=== PATIENT | female | born 1945 | race Caucasian/White ===

== ENCOUNTER → 2018-11-12 | Outpatient (CLI) | payer MEDICARE ==
[~2018-11-12] MED LIST: ATOR10TA PO; ESCI10TA10 PO
[2018-11-12 10:46] LABS: BASOPHILS # (AUTO) 0.02 x10^3/uL (0-0.1); BASOPHILS % (AUTO) 1 % (0-1); EOSINOPHILS # (AUTO) 0.04 x10^3/uL (0-0.4); EOSINOPHILS % (AUTO) 1 % (1-7); LYMPHOCYTES # (AUTO) 0.88 x10^3/uL (1-3.4); LYMPHOCYTES % (AUTO) 20 % (22-44); MD NO; MEAN CORPUSCULAR HEMOGLOBIN 31.4 pg (27.0-34.8); MEAN CORPUSCULAR HGB CONC 32.9 g/dL (32.4-35.8); MEAN CORPUSCULAR VOLUME 95.5 fL (80-100); MEAN PLATELET VOLUME 7.9 fL (7.4-10.4); MONOCYTES # (AUTO) 0.27 x10^3/uL (0.2-0.8); MONOCYTES % (AUTO) 6 % (2-9); NEUTROPHILS # (AUTO) 3.09 x10^3/uL (1.8-6.8); NEUTROPHILS % (AUTO) 72 % (42-75); PLATELET COUNT 249 x10^3/uL (130-400); RED CELL DISTRIBUTION WIDTH 13.1 % (9.6-15.2)
[2018-11-12 10:56] LABS: ANION GAP 6 mmol/L (5-15); CALCIUM 9.2 mg/dL (8.5-10.1); CHLORIDE 108 mmol/L (98-107); CREATININE 0.74 mg/dL (0.55-1.02)
== END | disposition home or self-care (01) ==
LOC: STAR 10:04
PROVIDERS: ATTEND Orthopaedic Surgery
DX: M17.0 Bilateral primary osteoarthritis of knee (principal); M18.12 Unilateral primary osteoarthritis of first carpometacarpal joint, left hand; M65.342 Trigger finger, left ring finger
CPT/HCPCS: 36415; 80048; 85025; 87081; 93005

== ENCOUNTER 2018-11-23 05:47 | Day surgery (SDC) | payer MEDICARE ==
[~2018-11-23] VITALS: Ht 165.1 cm; Wt 49.9 kg
[2018-11-23] MEDS ORDERED: LACTATED RINGERS 1,000 ML IV SCH (06:06)
[2018-11-23] MEDS ORDERED: KETOROLAC 60 MG/2 ML ONE (06:07)
[2018-11-23] MEDS ORDERED: ROPIvacaine/PF 0.2%, 20 ML ONE (06:07)
[2018-11-23] MEDS ORDERED: TRANEXAMIC ACID 100 MG/ML, 10ML ONE (06:07)
[2018-11-23] MEDS ORDERED: EPINEPHRINE 1 MG/ML, 1ML ONE (06:08)
[2018-11-23] MEDS ORDERED: SODIUM CHLORIDE 0.9% 50 ML ONE (06:08)
[2018-11-23] MEDS ORDERED: VANCOMYCIN 1,000 MG ONE (06:08)
[2018-11-23] MEDS ORDERED: MIDAZOLAM 1 MG/ML, 2ML ONE (06:54)
[2018-11-23] MEDS ORDERED: FENTANYL PF 250 MCG/5ML ONE (06:55)
[2018-11-23] MEDS ORDERED: ACETAMINOPHEN 500 MG TABLET ONE ×2 (07:06→10:07)
[2018-11-23] MEDS ORDERED: SCOPOLAMINE PATCH, 1.5MG PATCH.TD72 TD ONE ×2 (07:06→10:07)
[2018-11-23] MEDS ORDERED: GABAPENTIN 300 MG CAPSULE ONE ×2 (07:06→10:07)
[2018-11-23] MEDS ORDERED: hydrALAzine 20 MG/ML, 1ML IV PRN (08:00)
[2018-11-23] MEDS ORDERED: FENTANYL PF 100 MCG/2ML IV PRN (08:00)
[2018-11-23] MEDS ORDERED: DIAZEPAM 5 MG/ML, 2ML IVPush PRN (08:00)
[2018-11-23] MEDS ORDERED: HYDROmorphone 2 MG/ML, 1ML IVPush PRN (08:00)
[2018-11-23] MEDS ORDERED: PROMETHAZINE 25 MG/ML, 1ML IV PRN (08:00)
[2018-11-23] MEDS ORDERED: MEPERIDINE/PF 25MG/0.5ML IVPush PRN (08:00)
[2018-11-23] MEDS ORDERED: LABETALOL 5MG/ML, 20ML IV PRN (08:00)
[2018-11-23] MEDS ORDERED: OXYcodone 5 MG/5 ML ORAL.SOL UDC PO PRN (08:00)
[2018-11-23] MEDS ORDERED: ALBUTEROL SULFATE 2.5 MG/3 ML NPPB PRN (08:00)
[2018-11-23] MEDS ORDERED: D5%-0.45% NACL 1,000 ML IV SCH (08:46)
[2018-11-23] MEDS ORDERED: DIPHENHYDRAMINE 25 MG CAPSULE PO PRN (09:00)
[2018-11-23] MEDS ORDERED: ALUMINUM/MAG/SIMETHICONE 30 ML UDC PO PRN (09:00)
[2018-11-23] MEDS ORDERED: SCOPOLAMINE PATCH, 1.5MG PATCH.TD72 TD SCH (09:00)
[2018-11-23] MEDS ORDERED: ACETAMINOPHEN 325 MG TABLET PO SCH (09:00)
[2018-11-23] MEDS ORDERED: PROMETHAZINE 12.5 MG SUPP PR PRN (09:00)
[2018-11-23] MEDS ORDERED: PSYLLIUM PACKET PO PRN (09:00)
[2018-11-23] MEDS ORDERED: HYDROmorphone 1 MG/ML, 1ML INJ IVPush PRN (09:00)
[2018-11-23] MEDS ORDERED: SENNA/DOCUSATE TABLET PO PRN (09:00)
[2018-11-23] MEDS ORDERED: MULTIVITAMINS/MINERALS TABLET PO SCH (09:00)
[2018-11-23] MEDS ORDERED: ONDANSETRON 4 MG TABLET PO PRN (09:00)
[2018-11-23] MEDS ORDERED: ZOLPIDEM 5MG TABLET PO PRN (09:00)
[2018-11-23] MEDS ORDERED: DOCUSATE 100 MG CAPSULE PO SCH (09:00)
[2018-11-23] MEDS ORDERED: MAGNESIUM HYDROXIDE 8%, 30ML UDC PO PRN (09:00)
[2018-11-23] MEDS ORDERED: DIAZEPAM 5 MG TABLET PO PRN (09:00)
[2018-11-23] MEDS ORDERED: FERROUS SULFATE 325 MG TABLET PO SCH (09:00)
[2018-11-23] MEDS ORDERED: ONDANSETRON 2MG/ML, 2ML IV PRN (09:00)
[2018-11-23] MEDS ORDERED: POLYETHYLENE GLYCOL 17 GM PACKET PO PRN (09:00)
[2018-11-23] MEDS ORDERED: BISACODYL 10 MG SUPP PR PRN (09:00)
[2018-11-23] MEDS ORDERED: PROMETHAZINE 25 MG/ML, 1ML IM PRN (09:00)
[2018-11-23] MEDS ORDERED: ASCORBIC ACID 500 MG TABLET PO SCH (09:00)
[2018-11-23] MEDS ORDERED: ACETAMINOPHEN 650 MG/20.3 ML UDC PO PRN (09:00)
[2018-11-23] MEDS ORDERED: ATORVASTATIN 10 MG TABLET PO SCH (09:00)
[2018-11-23] MEDS ORDERED: TRANEXAMIC ACID 1,000 MG in SODIUM CHLORIDE 0.9% 100 ML IVPB ONE (09:15)
[2018-11-23] MEDS ORDERED: PROPOFOL 10 MG/ML, 20ML ONE (09:54)
[2018-11-23] MEDS ORDERED: DEXAMETHASONE 4 MG/ML, 1ML ONE (09:54)
[2018-11-23] MEDS ORDERED: SUCCINYLCHOLINE 20 MG/ML, 10ML ONE (09:54)
[2018-11-23] MEDS ORDERED: ROCURONIUM 10MG/ML,5ML ONE (09:54)
[2018-11-23] MEDS ORDERED: NEOSTIGMINE 1 MG/ML, 10ML ONE (09:54)
[2018-11-23] MEDS ORDERED: GLYCOPYRROLATE 0.2MG/1ML, 5ML ONE (09:54)
[2018-11-23] MEDS ORDERED: ONDANSETRON 2MG/ML, 2ML ONE (09:54)
[2018-11-23] MEDS ORDERED: CEFAZOLIN 1,000 MG ONE (09:54)
[2018-11-23] MEDS: HYDROcodone/APAP 5/325 TABLET PO PRN ×2 (11:16→17:05)
[2018-11-23] MEDS: CALCIUM/VITAMIN D3 250-125 TABLET PO SCH ×2 (11:16→17:05)
[2018-11-23] MEDS ORDERED: KETOROLAC 30 MG/1 ML IV SCH (14:00)
[2018-11-23 15:00] VITALS: BP 109/55
[2018-11-23] MEDS ORDERED: HYDR-3240 PO (17:09)
[2018-11-23] MEDS ORDERED: CEFAZOLIN PMX 1GM/50ML 50 ML IVPB SCH (18:00)
[2018-11-23] MEDS ORDERED: ESCITALOPRAM 10MG TABLET PO SCH (21:00)
[2018-11-24] MEDS ORDERED: DEXAMETHASONE 4 MG/ML, 1ML IVPush ONE (06:00)
[2018-11-24] MEDS ORDERED: ASPIRIN 81 MG TABLET EC PO SCH (18:00)
== END 2018-11-23 17:28 | disposition home or self-care (01) ==
LOC: OUT 05:47 → 4NOR 09:58 → OUT 17:28
PROVIDERS: ATTEND Orthopaedic Surgery
DX: M17.0 Bilateral primary osteoarthritis of knee (principal); M11.261 Other chondrocalcinosis, right knee; M21.061 Valgus deformity, not elsewhere classified, right knee; M25.761 Osteophyte, right knee; M22.2X1 Patellofemoral disorders, right knee; M81.0 Age-related osteoporosis without current pathological fracture; Z72.89 Other problems related to lifestyle; Z79.899 Other long term (current) drug therapy
CPT/HCPCS: 27447; 64447; 73560; 97110; 97162; 97530; C1713; C1776; J0171; J0330; J0690; J1100; J1885; J2250; J2405; J2704; J2710; J2795; J3010; J7120; G0378; J3370